=== PATIENT | male | born 1930 | race Caucasian/White ===

== ENCOUNTER 2019-01-28 10:08 | Inpatient (IN) ==
[2019-01-28] MEDS ORDERED: ULTRAM PO ONE (10:27)
--- NOTE | 2019-01-28 10:28 | PROVIDER DOCUMENTATION ---
HPI-Musculoskeletal Pain/Inj - GENERAL Chief Complaint: Male Stated Complaint: MALE Time Seen by Provider: 01/28/19 10:15 Source: patient - HX OF PRESENT ILLNESS-MUSKULOSKELTAL Nature of Presenting Problem: Patient is an 88 yowm who complains of left lower back pain since last night. The pain is exacerbated by movement. He states that he has felt the urge to urinate but has urinated on himself a few times since the onset of pain due to not being able to make it to the restroom in time. He denies fever, back injury, n/v/d, hematuria/dysuria, or any other complaints. He is non-toxic in appearanc e. Review of Systems - Adult - REVIEW OF SYSTEMS - ADULT Constitutional: reports: no symptoms reported. denies: chills, fever Eyes: reports: no symptoms reported Ears, Nose, Mouth & Throat: reports: no symptoms reported Cardiovascular: reports: no symptoms reported Respiratory: reports: no symptoms reported Gastrointestinal: reports: no symptoms reported Genitourinary: reports: no symptoms reported. denies: flank pain Musculoskeletal: reports: see HPI Integumentary: reports: no symptoms reported Neurological: reports: no symptoms reported Psychiatric: reports: no symptoms reported Endocrine: reports: no symptoms reported Hematologic/Lymphatic: reports: no symptoms reported Allergic/Immunologic: reports: no symptoms reported All Other Systems: Reviewed and Negative Past History - Adult - PAST MEDICAL HISTORY-ADULT Review of Records: reports: Old Records Reviewed, Nursing Assessment Review, Medications Reviewed, Social history reviewed & non-contributory. Major Childhood Illnesses: reports: denies history Cardiovascular: reports: HTN, hyperlipidemia Respiratory: reports: denies history Gastrointestinal: reports: denies history Genitourinary: reports: denies history Musculoskeletal: reports: denies history Neurological: reports: denies history Psychiatric: reports: denies history Endocrine/Immune: reports: Diabetes Diabetes Type: Type 2 Diabetes controlled by:: PO Meds Other Conditions: reports: denies history - PRIOR SURGERIES/PROCEDURES Surgical/Procedure History: reports: reviewed, not pertinent - FAMILY HISTORY Family History: reviewed, not pertinent - SOCIAL HISTORY Smoking: non-smoker Physical Exam-Injury Related - Physical Exam-Injury Related Initial Vital Signs Reviewed: Yes General Appearance: alert, no apparent distress. negative: lethargic, slow to respond Eyes: PERRL/EOMI, pink conjunctivae Head, Ears, Nose, Mouth & Throat: normocephalic/atraumatic, moist mucous membranes Neck: non-tender, full range of motion, supple, normal inspection Respiratory: chest non-tender, lungs clear, normal breath sounds, no pleuratic chest pain, no respiratory distress, no accessory muscle use Cardiovascular: normal peripheral pulses, regular rate, rhythm, no edema, no gallop, no murmur Abdominal Exam: normal bowel sounds, non tender, soft, no pulsatile mass. negative: distended, guarding, rigid, rebound, tenderness, hernia, mass Back Exam: normal inspection, no CVA tenderness, no vertebral tenderness, other (paraspinous muscles non-tender) Extremity: normal range of motion, non-tender, normal gait, normal inspection Integumentary: normal color, warm/dry. negative: cyanosis, diaphoresis, jaundice, mottled, pallor Neurologic: grossly normal, no motor/sensory deficits Psych/Mental Status: normal mood/affect, normal thought content, normal thought process, oriented x 3 - Glascow Coma Score Best Eye Response ([place]): (4) open spontaneously Best Verbal Response ([place]): (5) oriented Best Motor Response ([place]): (6) obeys commands Progress - PLAN OF CARE/RESULTS Progress/Plan/Lab Results: Vital Signs - 8 hr 01/28/19 10:10 Temperature 97.4 F L Pulse Rate 109 H Respiratory Rate 18 Blood Pressure 168/96 O2 Sat by Pulse Oximetry 97 Laboratory Results - last 24 hr 01/28/19 01/28/19 01/28/19 11:20 11:20 11:20 WBC 12.72 H RBC 4.54 L Hgb 13.0 L Hct 35.9 L MCV 79.1 L MCH 28.6 MCHC 36.2 RDW Std Deviation 16.0 H Plt Count 142 MPV 11.4 H Immature Gran % (Auto) 0.2 Neut % (Auto) 77.6 H Lymph % (Auto) 12.4 L [place] % (Auto) 8.9 Eos % (Auto) 0.7 Baso % (Auto) 0.2 Immature Gran # (Auto) 0.03 Neut # (Auto) 9.87 H Lymph # (Auto) 1.58 [place] # (Auto) 1.13 H Eos # (Auto) 0.09 Baso # (Auto) 0.02 PT 13.7 INR 1.04 PTT (Actin FS) 29.9 Sodium Potassium Chloride Carbon Dioxide Anion Gap BUN Creatinine Estimated GFR/1.73 m2 BUN/Creatinine Ratio Glucose Calculated Osmolality Calcium Total Bilirubin AST ALT Alkaline Phosphatase Troponin T < 0.010 Total Protein Albumin Globulin Albumin/Globulin Ratio Urine Source Urine Color Urine Turbidity Urine pH Ur Specific [place] Urine Protein Ur Glucose (Stick) Ur Ketones (Stick) Urine Blood Urine Nitrite Urine Bilirubin Urobilinogen Dipstick Urine Leukocytes Urine WBC (Auto) Urine RBC (Auto) U Epithel Cells (Auto) Urine Bacteria (Auto) Urine Crystals Small Round Cells Urine Casts Urine Yeast-like Cells 01/28/19 01/28/19 11:24 11:34 WBC RBC Hgb Hct MCV MCH MCHC RDW Std Deviation Plt Count MPV Immature Gran % (Auto) Neut % (Auto) Lymph % (Auto) [place] % (Auto) Eos % (Auto) Baso % (Auto) Immature Gran # (Auto) Neut # (Auto) Lymph # (Auto) [place] # (Auto) Eos # (Auto) Baso # (Auto) PT INR PTT (Actin FS) Sodium 137 Potassium 3.8 Chloride 98 Carbon Dioxide 23 L Anion Gap 16 BUN 22 Creatinine 0.7 Estimated GFR/1.73 m2 > 60 BUN/Creatinine Ratio 31 Glucose 245 H Calculated Osmolality 285 Calcium 9.3 Total Bilirubin 4.82 H AST 264 H ALT 645 H Alkaline Phosphatase 567 H Troponin T Total Protein 6.5 Albumin 4.2 Globulin 2.3 Albumin/Globulin Ratio 1.8 Urine Source CLEAN CATCH Urine Color YELLOW Urine Turbidity CLEAR Urine pH 6.0 Ur Specific [place] 1.020 Urine Protein 50 A Ur Glucose (Stick) >1000 A Ur Ketones (Stick) NEGATIVE Urine Blood TRACE A Urine Nitrite NEGATIVE Urine Bilirubin SMALL A Urobilinogen Dipstick 3 A Urine Leukocytes NEGATIVE Urine WBC (Auto) <10 Urine RBC (Auto) <10 U Epithel Cells (Auto) <10 Urine Bacteria (Auto) NEGATIVE Urine Crystals NONE SEEN Small Round Cells NONE SEEN Urine Casts NONE SEEN Urine Yeast-like Cells NONE SEEN Orders Category Date Time Status Consent for Surgery DIRECTED Care 01/28/19 12:47 Active Hold Anticoagulants DIRECTED Care 01/28/19 12:47 Active Notify Anesthesia & House Sup. Routine Care 01/28/19 12:47 Active Nursing- Obtain EKG ONCE Care 01/28/19 10:26 Active Saline Loc NOW Care 01/28/19 10:27 Active NPO Diet 01/29/19 00:[address] RENAL STONE SEARCH [CT] Stat Exams 01/28/19 10:26 Completed ERCP-BILIARY AND PANCREATIC [RAD] Routine Exams 01/29/19 12:30 Ordered CBC WITH DIFF [HEME] Stat Lab 01/28/19 11:20 Completed COMPREHENSIVE METABOLIC PANEL [CHEM] Stat Lab 01/28/19 11:24 Completed PROTIME WITH INR [COAG] Stat Lab 01/28/19 11:20 Completed PTT [COAG] Stat Lab 01/28/19 11:20 Completed TROPONIN T Stat Lab 01/28/19 11:20 Completed UA NIMS W/REFLEX CULT [URINALYSIS] Stat Lab 01/28/19 11:34 Completed URINE MANUAL MICROSCOPIC [URINALYSIS] Stat Lab 01/28/19 11:34 Completed Tramadol [Ultram] Med 01/28/19 10:27 Discontinued 50 mg PO NOW ONE EKG [EKG] Stat Ther 01/28/19 10:26 Ordered Result Diagrams: 01/28/19 11:20 01/28/19 11:24 - CONSULTS/PCP/HOSPITALIST Notification #1 *Consult/PCP/Hospitalist*: Dr. Hunter Time Discussed: 12:42 Reason/Comments: choledocholithiasis Consult Disposition: Admit ( states to admit to [facility] and he will have his BUSINESS PROCESS MODELER ev aluate to see if pt can have ERCP tomorrow. Admitting HPS paged at this time. Pt in agreement with admission plan.) #2 Consult: DURGA Pereira BUSINESS PROCESS MODELER Time Discussed: 12:54 Reason/Comments: admission- choledocholithiasis Consult Disposition: Admit Departure - Departure Date of Disposition Decision: 01/28/19 Time of Disposition Decision: 12:15 DIAGNOSIS: Choledocholithiasis, Elevated liver enzymes Back pain Qualifiers: Back pain location: low back pain Chronicity: acute Back pain laterality: left Sciatica presence: without sciatica Qualified Code(s): M54.5 - Low back pain Disposition: ADMITTED INPATIENT 09 Certified Medical Emergency: Emergent Condition: Stable Referrals and Follow-Ups: Young Augustine DO [Primary Care Provider] - - Critical Care Note This patient required my direct & personal management of CC.: No Attestation - Physician/ CHERRIE Attestation Patient care was provided by Advanced Practice Provider:: Yes Advanced Practice Provider:: Orin Merrill Advanced Practice Provider documentation review:: The Mid-level provider documentation, treatment plan and medical decision making was reviewed by the physician who agrees with all treatment and medical decision making by the MLP. The physician spent face to face time with patient:: No Advanced Practice Provider documentation review:: Supervising physician onsite and consulted in the evaluation and care of this patient. The physician did not have a face to face encounter with the patient.
--- NOTE | 2019-01-28 10:57 | Diag Imaging Result Doc PS360 ---
EXAM: CT RENAL STONE SEARCH 01/28/2019 HISTORY: left mid-lower back pain TECHNIQUE: This exam was performed using automated exposure control, adjustment of mA or kV according to patient size, and/or use of iterative reconstruction technique. COMMENT: There are some fibrotic changes present in the lung bases. No previous studies are available for comparison. There is calcification in the right coronary artery. There is a hiatal hernia with fluid in the distal esophagus. There is no evidence of nephrolithiasis or hydronephrosis. The spleen and adrenal glands are not enlarged. There has been cholecystectomy. The distal common bile duct appears to contain a calcified stone measuring less than 5 mm in diameter. The pancreas is grossly normal in appearance considering the lack of intravenous contrast. There is a fair amount of stool in the colon. This is particularly true in the right colon. There has been previous appendectomy. There is no evidence of small bowel obstruction. The aorta is not distended and there is no evidence of significant adenopathy. There is no evidence of free air or free fluid. The prostate gland is slightly enlarged measuring 6 cm transversely. There are bilateral hydroceles particularly on the left side. There is calcium pyrophosphate deposition in the symphysis pubis. There are bone islands in the right iliac bone and femoral head. There are degenerative disc changes at L5 S1. IMPRESSION: 1. Hiatal hernia with apparent reflux. 2. Choledocholithiasis. 3. Constipation. 4. Bilateral hydroceles. Electronically signed by Feliz Lorenz 01/28/2019 10:54 AM
[2019-01-28 11:29] LABS: BASO% 0.2 % (0.0-0.8); EOS# 0.09 X1000 (0.0-0.7); EOS% 0.7 % (0.0-10.0); HEMATOCRIT 35.9 % (42.0-52.0); IMM GRAN% 0.2 % (0.0-0.5); LYMPH# 1.58 X1000 (1.2-3.4); LYMPH% 12.4 % (20.5-51.1); MCH 28.6 PG (27-31); MCHC 36.2 g/dL (33-37); MCV 79.1 FL (81-99); MONO# 1.13 X1000 (0.11-0.59); MONO% 8.9 % (1.7-9.3); MPV 11.4 FL (7.4-10.4); NEUT# 9.87 X1000 (1.4-6.5); NEUT% 77.6 % (42.2-75.2); PLT 142 X1000 (130-400); RBC 4.54 XMIL (4.7-6.1); WBC 12.72 X1000 (4.8-10.8)
[2019-01-28 11:30] LABS: BASO# 0.02 X1000 (0.0-0.2); IMM GRAN# 0.03 X1000 (0.0-0.04)
[2019-01-28 11:36] LABS: INR 1.04; PROTIME 13.7 Seconds (11.0-16.0)
[2019-01-28 11:37] LABS: PTT 29.9 Seconds (22.3-41.8)
[2019-01-28 11:44] LABS: URINE SOURCE CLEAN CATCH
[2019-01-28 11:46] LABS: BILIRUBIN URINE SMALL (NEGATIVE); BLOOD URINE TRACE (NEGATIVE); COLOR YELLOW; GLUCOSE URINE >1000 mg/dL (NEGATIVE); KETONE URINE NEGATIVE (NEGATIVE); LEUKOCYTES URINE NEGATIVE (NEGATIVE); NITRITE URINE NEGATIVE (NEGATIVE); PROTEIN URINE 50 mg/dL (NEGATIVE); TURBIDITY URINE CLEAR (CLEAR); UROBILINOGEN URINE 3 mg/dL (NORMAL)
[2019-01-28 11:55] LABS: UR EPITHELIAL CELLS <10 /HPF (<10); URINE BACTERIA NEGATIVE /HPF; URINE CASTS NONE SEEN; URINE CRYSTALS NONE SEEN; URINE RBC <10 /HPF (<10); URINE SMALL ROUND CELLS NONE SEEN; URINE WBC <10 /HPF (<10); URINE YEAST NONE SEEN
--- NOTE | 2019-01-28 12:11 | ED EKG INTERP ---
This chart was entered by Prachi Flores Scribe, acting as scribe for Emil Cota MD. EKG Interpretation - EKG Time of EKG reading by physician:: 11:33 EKG Read and Signed by:: Emil Cota EKG Interpretation (*Must complete 3 of following elements*): Normal (Borderline) Rate: 82 Rhythm: NSR [place]: normal QRS: other (possible L atrial enlargement) NH Interval: normal ST Wave: normal Attestation - Physician/ CHERRIE Attestation Patient care was provided by Advanced Practice Provider:: Yes Advanced Practice Provider:: Orin Merrill Advanced Practice Provider documentation review:: The Mid-level provider documentation, treatment plan and medical decision making was reviewed by the physician who agrees with all treatment and medical decision making by the MLP. The physician spent face to face time with patient:: No Advanced Practice Provider documentation review:: Supervising physician onsite and consulted in the evaluation and care of this patient. The physician did not have a face to face encounter with the patient. This chart was documented by the indicated scribe, (Prachi Flores Scribe) and accurately reflects the services I performed and decisions made by me, Emil Cota MD, as attested by the provider's signature.
[2019-01-28 12:19] LABS: AGAP 16; ALB/GLOB RATIO 1.8; ALBUMIN 4.2 g/dL (3.5-5.0); ALKALINE PHOSPHATASE 567 U/L (32-122); BUN 22 mg/dL (8-22); CALCIUM 9.3 mg/dL (8.8-10.2); CHLORIDE 98 mmol/L (98-107); COSMO 285; CREATININE 0.7 mg/dL (0.7-1.2); ESTIMATED GFR > 60; GLUCOSE 245 mg/dL (70-104); GOT 264 U/L (10-34); GPT 645 U/L (10-44); POTASSIUM 3.8 mmol/L (3.5-5.1); SODIUM 137 mmol/L (136-145); TCO2 23 mmol/L (25-35); TOTAL BILIRUBIN 4.82 mg/dL (0.20-1.00); TOTAL PROTEIN 6.5 g/dL (6.3-8.3)
[2019-01-28] MEDS ORDERED: APRESOLINE IV PRN (14:11)
[2019-01-28] MEDS ORDERED: DEMEROL IV PRN (14:11)
[2019-01-28] MEDS ORDERED: ZOFRAN IV PRN (14:11)
--- NOTE | 2019-01-28 14:22 | HISTORY AND PHYSICAL ---
PRIMARY CARE PROVIDER: Dr. Vinny Augustine. RADIAL SAW OPERATOR: Dr. Clayton in [place]. CHIEF COMPLAINT: Low back pain. HISTORY OF PRESENT ILLNESS: Mr. Dubose is an 88-year-old male who is hard of hearing, carries a past medical history of diabetes mellitus, hypertension, hyperlipidemia, reports that back in November, he had a cholecystectomy at [facility]. He returns to the ED today complaining of left lower back pain that started last night. The pain was exacerbated by movement, and also reported some urinary incontinence. Workup in the ED with a renal CT showed choledocholithiasis. Lab work shows transaminitis. Dr. Blackwell has been consulted, and he has been set up for ERCP in the a.m. Will admit him to the surgical telemetry floor. Continue with pain medicines, antiemetics, full liquids, n.p.o. after midnight. PAST MEDICAL HISTORY: 1. Diabetes mellitus. 2. Hypertension. 3. Hyperlipidemia. PAST SURGICAL HISTORY: 1. Cholecystectomy. 2. Appendectomy. 3. Sinus surgery. FAMILY HISTORY: Both parents with coronary artery disease. Both in their late 90s. SOCIAL HISTORY: for 61 years. 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 He has 3 children. Grandchildren, about to have 3 great grandchildren. No alcohol, tobacco, or illicit drug use. ALLERGIES: 1. Aspirin, severe swelling. 2. Meningococcal vaccine, severe swelling. 3. Penicillin, unknown. 4. Plavix, unknown. HOME MEDICATIONS: 1. Lipitor 40 mg p.o. at bedtime. 2. CoQ10 one capsule p.o. daily. 3. Cozaar 25 mg p.o. daily. 4. Glimepiride 1 mg p.o. b.i.d. 5. Glucophage XR 500 mg p.o. b.i.d. PHYSICAL EXAMINATION: VITAL SIGNS: Temperature is 97.4 degrees, heart rate 80, respirations 16, blood pressure was 165/102, O2 is 96% on room air. GENERAL: Mr. Dubose is a [id number], 88-year-old, male, who is sitting up in the bed in no acute distress. HEENT: Atraumatic, normocephalic. PERRL. NECK: Supple. Trachea midline. CARDIOVASCULAR: S1, S2 appreciated. No murmurs, gallops, rubs noted. RESPIRATORY: Lungs are clear bilaterally. GASTROINTESTINAL: Soft, nontender, nondistended. Positive bowel sounds x4 quadrants. LOWER EXTREMITIES: Generalized edema. SKIN: Warm, dry, and intact. NEUROLOGIC: No focal deficits noted. DIAGNOSTIC DATA: Renal CT: Hiatal hernia with apparent reflux, choledocholithiasis, constipation, bilateral hydrocele. LABORATORY DATA: White count 12, hemoglobin and hematocrit 13 and 35, platelet count is 142,000. Sodium 137, potassium 3.8, BUN 22, creatinine 0.7, blood glucose is 245. Total bilirubin 4.82, AST 264, ALT 645, alkaline phosphatase 527. Troponin less than 0.010. ASSESSMENT AND PLAN: 1. Choledocholithiasis. The patient has been set up for endoscopic retrograde cholangiopancreatography in the morning with Dr. Blackwell. He will be on a clear liquid diet, nothing by mouth after midnight, pain regimen. 2. Transaminitis secondary to #1. Will continue at a trend with daily labs. 3. Diabetes mellitus with hyperglycemia. We will place him on pattern blood sugars with sliding scale. Will hold his oral medications for now. 4. Hyperlipidemia. Hold Lipitor. 5. Hypertension. Will hold his Cozaar for now, and do as needed Apresoline. 6. Further recommendations to follow physician evaluation, laboratory and diagnostic data. Dictated by LUCITA Garcia for Landry Zuleta MD Addendum: Patient seen and examined by myself. Agree with LUCITA note. It reflects my assessment and plan. Patient is being admitted to hospital for choledocholithiasis. Will be seen by and will require ERCP tomorrow. Will monitor LFT daily. cc: MD Young Rodgers, DO MTDD
--- NOTE | 2019-01-28 14:40 | GASTROENTEROLOGY CONSULTATION ---
DATE: 01/28/2019 REASON FOR CONSULTATION: Abnormal CT scan showing possible choledocholithiasis. HISTORY OF PRESENT ILLNESS: This is an 88-year-old male who reports onset of symptoms yesterday. He has reported pain, mainly in the left lower back area. He had had some issues urinating. No reported fever. No reported hematuria. The patient reports recent cholecystectomy in November in [place]. He does not remember the name of the surgeon. He has also recently seen his regrind mill operator, Dr. Clayton. He states he had recently wore a heart monitor for 1 month. The patient states he is currently not taking blood thinners. During workup, the patient had a CT renal stone search that showed hiatal hernia, with apparent reflux, choledocholithiasis. The common bile duct appears to contain a calcified stone measuring less than 5 mm in diameter. Also findings of constipation and bilateral hydroceles. PAST MEDICAL HISTORY: Hypertension, hyperlipidemia, history of coronary artery disease, diabetes. PAST SURGICAL HISTORY: Recent cholecystectomy this year in [place]. ALLERGIES: Aspirin causing swelling, pneumonia vaccine causing swelling, penicillin (unknown reaction), Plavix (unknown reaction). HOME MEDICATIONS: Lipitor 1 tablet every night, glimepiride 1 tablet twice a day, Cozaar 25 mg daily, metformin 500 mg twice a day, CoQ10 one daily. SOCIAL HISTORY: He is . Denies tobacco use. Occasional wine use, but none in the last 6 months. He has 3 children. PHYSICAL EXAMINATION: Vital Signs: Temperature 97.4 degrees, pulse 80, respirations 16, blood pressure 165/102. General: The patient is awake and alert. He is currently in the emergency room in a holding room in no acute distress. HEENT: Normocephalic, atraumatic. Pupils equal, round, reactive to light. Sclerae nonicteric. Cardiovascular: Regular rate and rhythm. Respiratory: Lung sounds are clear bilaterally. Abdomen: Nontender. Positive bowel sounds. Soft. Extremities: No lower extremity edema noted. Neurological: Cranial nerves II through XII grossly intact. The patient is awake, alert, oriented to person, place, and time. IMAGING AND LABORATORY DATA: Hematology: WBC 12.72, hemoglobin 13.0, hematocrit 35.9, MCV 79.1, platelets 142,000. Coagulation: ProTime 13.7, INR 1.04, PTT 29.9. Chemistry: Sodium 137, potassium 3.8, chloride 98, CO2 of 23, BUN 22, creatinine 0.7, glucose 245. Total bilirubin 4.82, AST 264, ALT 645, alkaline phosphatase 567. CT scan showed evidence of common bile duct stone measuring less than 5 mm in diameter. ASSESSMENT AND PLAN: 1. Back pain. 2. History of recent cholecystectomy. 3. Elevated liver function tests, including bilirubin. 4. CT scan showing possible stone in the common bile duct. Continue current medications. Continue pain medicine as needed. Will allow full liquid diet today. Will place nothing by mouth after midnight for plans for endoscopic retrograde cholangiopancreatography, stone extraction, and possible stent placement if indicated. I have discussed the procedure, along with benefits and risks with the patient, and he wishes to proceed. I have given him a pamphlet on the endoscopic retrograde cholangiopancreatography procedure and what to expect. Further plans to be made according to findings. I have discussed this case with Dr. Hunter. Thank you for this consultation. Plan is for endoscopic retrograde cholangiopancreatography on Tuesday. Dictated by LUCITA Santos for Eric Hunter MD cc: LUCITA Yusuf MD [facility]
[2019-01-28] MEDS: LEVAQUIN 750 MG/D5W 750 MG/150 ML IVPB IV SCH (15:38)
[2019-01-28] MEDS: NS 1,000 ML IV SCH (15:38)
--- NOTE | 2019-01-28 16:15 | EKG Report ---
Test Performed on : 01/28/2019 11:33:12 AM Test Reason : mid back pain Blood Pressure : / mmHG Vent. Rate : 082 BPM Atrial Rate : 082 BPM P-R Int : 176 ms QRS Dur : 100 ms QT Int : 394 ms P-R-T Axes : 056 -06 035 degrees QTc Int : 460 ms Normal sinus rhythm. Possible Left atrial enlargement Borderline ECG When compared with ECG of 30-SEP-2018 18:26, premature ventricular complexes. are no longer present Unconfirmed Result
[2019-01-28] MEDS: HUMALOG SUBQ SCH ×2 (18:11→22:24)
[2019-01-29] MEDS: NS 1,000 ML IV SCH ×2 (03:16→15:41)
[2019-01-29] MEDS: HUMALOG SUBQ SCH ×4 (06:00→21:05)
[2019-01-29 07:23] LABS: BASO# 0.02 X1000 (0.0-0.2); BASO% 0.2 % (0.0-0.8); EOS# 0.32 X1000 (0.0-0.7); EOS% 3.3 % (0.0-10.0); HEMATOCRIT 34.4 % (42.0-52.0); HEMOGLOBIN 12.3 g/dL (14.0-18.0); IMM GRAN# 0.04 X1000 (0.0-0.04); IMM GRAN% 0.4 % (0.0-0.5); LYMPH# 1.66 X1000 (1.2-3.4); LYMPH% 17.3 % (20.5-51.1); MCH 28.4 PG (27-31); MCHC 35.8 g/dL (33-37); MCV 79.4 FL (81-99); MONO# 1.21 X1000 (0.11-0.59); MONO% 12.6 % (1.7-9.3); MPV 11.9 FL (7.4-10.4); NEUT# 6.36 X1000 (1.4-6.5); NEUT% 66.2 % (42.2-75.2); PLT 144 X1000 (130-400); RBC 4.33 XMIL (4.7-6.1); RDW 15.6 % (11.5-14.5); WBC 9.61 X1000 (4.8-10.8)
[2019-01-29 07:34] LABS: AGAP 12; ALB/GLOB RATIO 1.3; ALBUMIN 3.5 g/dL (3.5-5.0); ALKALINE PHOSPHATASE 482 U/L (32-122); BUN 12 mg/dL (8-22); CALCIUM 8.9 mg/dL (8.8-10.2); CHLORIDE 101 mmol/L (98-107); COSMO 280; CREATININE 0.7 mg/dL (0.7-1.2); ESTIMATED GFR > 60; GLUCOSE 146 mg/dL (70-104); GOT 116 U/L (10-34); GPT 476 U/L (10-44); MAGNESIUM 1.1 mg/dL (1.5-2.7); POTASSIUM 3.9 mmol/L (3.5-5.1); SODIUM 139 mmol/L (136-145); TCO2 26 mmol/L (25-35); TOTAL BILIRUBIN 2.09 mg/dL (0.20-1.00); TOTAL PROTEIN 6.1 g/dL (6.3-8.3)
[2019-01-29] MEDS ORDERED: DIPRIVAN 1% 500 MG/50 ML BOTTLE ONE (13:13)
[2019-01-29] MEDS ORDERED: ZOFRAN ONE (13:20)
[2019-01-29] MEDS ORDERED: ROBINUL ONE (13:20)
[2019-01-29] MEDS ORDERED: NEO-SYNEPHRINE ONE (13:20)
[2019-01-29] MEDS ORDERED: SODIUM CHLORIDE 0.9% 20 ML ONE (13:20)
[2019-01-29] MEDS ORDERED: XYLOCAINE-MPF 2% ONE (13:32)
[2019-01-29] MEDS ORDERED: FENTANYL ONE (13:35)
--- NOTE | 2019-01-29 14:26 | GASTROENTEROLOGY PROGRESS NOTE ---
DATE: 01/29/2019 SUBJECTIVE: Patient was awake and alert. There are plans for ERCP today. Patient has been NPO. I have answered further questions he had, along with his , regarding the procedure, along with benefits and risks, and they wished to proceed. Further plans to be made according to findings. Today, his total bilirubin is 2.09, AST 116, ALT 476, alkaline phosphatase 482. Again, further plans to be made according to findings of the ERCP procedure. I have discussed this case with Dr. Hunter. Dictated by LUCITA Santos for Eric Hunter MD cc: LUCITA Yusuf MD [facility]
--- NOTE | 2019-01-29 14:52 | ENDOSCOPY OPERATIVE NOTE ---
[facility] ENDOSCOPY OPERATIVE NOTE , ERCP PROCEDURE REPORT EXAM DATE: 01/29/2019 PATIENT NAME: Reza Dubose MR #: [id number] BIRTHDATE: 1930 ATTENDING: Eric Hunter MD STATUS: inpatient FABRIC PATTERN GRADER: Kelli Otero, Emily Baldwin, and Minh Tellez INDICATIONS: The patient is a 88 yr old male here for an ERCP due to abnormal liver function test an d history of bile duct stone(s). PROCEDURE PERFORMED: ERCP with sphincterotomy/papillotomy ERCP with removal of calculus/calculi MEDICATIONS: Per Anesthesia CONSENT: The patient understands the risks and benefits of the procedure and understands that these r isks include, but are not limited to: sedation, allergic reaction, infection, perforation and/or bleeding. Alternative means of evaluation and treatment include, among others: physical exam, x-rays, and/or surgical intervention. The patient elects to proceed with this endoscopic procedure. HISTORY AND PHYSICAL: 01/29/2019 function. Hand hygiene and appropriate measures for infection prevention was taken. After the risks, benefits and alternatives of the procedure were thoroughly explained, Informed was verified, confirmed and timeout was successfully executed by the treatment team. With the patient in left semi-prone position, medications were admini stered intravenously.The [id number] ([id number]) was passed from the mouth into the esophagus and further advanc ed from the esophagus into the stomach. From stomach scope was directed to the second portion of the duodenum. M ajor papilla was aligned with the duodenoscope. The scope position was confirmed fluoroscopically. Rest of the finding s/therapeutics are given below. The scope was then completely withdrawn from the patient and the procedure completed. Th e pulse, BP, and O2 saturation were monitored and documented by the physician and the nursing staff throughout the ent valeriy procedure. The patient was cared for as planned according to standard protocol. The patient was then discharged to [facility] in stable condition and with appropriate post procedure care. ERCP: A operator electronic warfare film prior to endoscope insertion appeared normal. The Major Papilla was located in t he second portion of the duodenum. The major papilla appeared normal. Bile duct cannulation was attempted using the sphincterotome with guidewire. Cannulation of the bile duct was performed with ease. Deep cannulation was successf ully achieved. Contrast injection was performed. A cholangiogram releaved pancreas divisum. The cholangiogram re vealed two filling defects in the distal common bile duct. With guidewire within the bile duct, a large biliary sphinc terotomy was performed. A stone extraction was attempted using a stone extraction balloon. The bile duct was sw ept. ADVERSE EVENT: There were no complications. IMPRESSIONS: Common bile duct stone(s) RECOMMENDATIONS: 1. Start Full liquid diet for 1 Day(s) 2. Advance diet as tolerated 3. Repeat liver function test in 1 day(s) 4. Resume current medications 5. Disposition 6. Return to floor when standard parameters are met REPEAT EXAM: Eric Hunter MD eSigned: Eric Hunter MD 01/29/2019 2:51 PM cc: Young Augustine DO PATIENT NAME: Reza Dubose MR#: [id number]
--- NOTE | 2019-01-29 15:16 | Diag Imaging Result Doc PS360 ---
ERCP-BILIARY AND PANCREATIC - 01/29/2019 INDICATION: cbd stone, hx cholecystectomy, stone extraction, no stent placed TECHNIQUE: The exam was performed by the patient's endoscopist. Total fluoroscopy time was 2.7 minutes. Four images were obtained. COMPARISON: None FINDINGS: Contrast injection of the common bile duct demonstrated dilation of the duct. There is also a filling defect compatible with a stone. Stone extraction was performed. No stent was placed. IMPRESSION: Extraction of common bile duct stone. Electronically signed by Elvis Yang 01/29/2019 3:14 PM
[2019-01-29] MEDS: LEVAQUIN 750 MG/D5W 750 MG/150 ML IVPB IV SCH (15:41)
--- NOTE | 2019-01-29 16:33 | PROGRESS NOTE ---
DATE: 01/29/2019 SUBJECTIVE: Patient has no major complaints. OBJECTIVE: Blood pressure is 137/66, heart rate 85, respiratory 21, temperature 98 degrees, 97% on room air.Cardiovascular: Regular rate and rhythm. Pulmonary: Bilateral breath sounds clear to auscultation. GI: Soft, nontender, nondistended. Bowel sounds are positive. LABORATORY DATA: White count is 9, hemoglobin and hematocrit 12, 34, platelets 144,000, T bilirubin 2, AST and ALT 116 and 476. PROBLEM LIST: 1. Choledocholithiasis, patient is status post ERCP and he seems to be doing better, advancing diet. Will follow. 2. Elevated liver enzymes related to transient hepatitis from the biliary obstruction. Numbers already improved. 3. Type 2 diabetes. Continue his medications and follow. His sugars are okay. They have not been terrible so will keep an eye on them. DISPOSITION: If improved I anticipate he probably discharge the next 1 to 2 days. cc: Evgeny Tidwell MD
[2019-01-30] MEDS ORDERED: LOVENOX SUBQ SCH (06:00)
[2019-01-30] MEDS: HUMALOG SUBQ SCH ×2 (06:15→11:02)
[2019-01-30] MEDS: NS 1,000 ML IV SCH ×2 (06:57→13:18)
[2019-01-30] MEDS ORDERED: PRILOSEC PO SCH (07:00)
[2019-01-30 07:33] LABS: BASO# 0.03 X1000 (0.0-0.2); BASO% 0.3 % (0.0-0.8); EOS# 0.36 X1000 (0.0-0.7); EOS% 3.1 % (0.0-10.0); HEMATOCRIT 33.4 % (42.0-52.0); IMM GRAN# 0.07 X1000 (0.0-0.04); IMM GRAN% 0.6 % (0.0-0.5); LYMPH# 1.69 X1000 (1.2-3.4); LYMPH% 14.7 % (20.5-51.1); MCH 28.6 PG (27-31); MCHC 35.9 g/dL (33-37); MCV 79.7 FL (81-99); MONO# 1.18 X1000 (0.11-0.59); MONO% 10.2 % (1.7-9.3); MPV 12.4 FL (7.4-10.4); NEUT# 8.19 X1000 (1.4-6.5); NEUT% 71.1 % (42.2-75.2); PLT 144 X1000 (130-400); RBC 4.19 XMIL (4.7-6.1); RDW 15.9 % (11.5-14.5); WBC 11.52 X1000 (4.8-10.8)
[2019-01-30 08:04] LABS: AGAP 13; ALBUMIN 3.1 g/dL (3.5-5.0); ALKALINE PHOSPHATASE 406 U/L (32-122); BUN 11 mg/dL (8-22); CHLORIDE 100 mmol/L (98-107); COSMO 275; CREATININE 0.7 mg/dL (0.7-1.2); ESTIMATED GFR > 60; GLUCOSE 166 mg/dL (70-104); GOT 74 U/L (10-34); GPT 341 U/L (10-44); POTASSIUM 3.8 mmol/L (3.5-5.1); SODIUM 136 mmol/L (136-145); TCO2 23 mmol/L (25-35); TOTAL BILIRUBIN 1.84 mg/dL (0.20-1.00); TOTAL PROTEIN 6.1 g/dL (6.3-8.3)
[2019-01-30 09:35] LABS: HEMOGLOBIN A1C 6.8 % (4.8-6.0)
--- NOTE | 2019-01-30 11:37 | GASTROENTEROLOGY PROGRESS NOTE ---
DATE: 01/30/2019 SUBJECTIVE: Patient states he is feeling better. He currently denies abdominal pain. He had an ERCP with sphincterotomy done on 01/29/2019. Liver function tests have improved some today. OBJECTIVE: Vital Signs: Temperature 98.1 degrees, pulse 75, respirations 18, blood pressure 140/72. General: The patient is awake, alert, no acute distress. Abdomen: Soft, nontender. Positive bowel sounds. LABORATORY: Hematology WBC 11.52, hemoglobin 12.0, hematocrit 33.4, MCV 79.7. Chemistry sodium 136, potassium 3.8, chloride 100, CO2 of 23, BUN 11, creatinine 0.7, glucose 166, total bilirubin 1.84, AST 74, ALT 341, alkaline phosphatase 406. ASSESSMENT AND PLAN: 1. Elevated liver function tests, history of recent cholecystectomy. 2. Choledocholithiasis, status post endoscopic retrograde cholangiopancreatography and sphincterotomy. A stent was not placed. 3. Type 2 diabetes. Will change his diet to a diabetic diet. 4. His liver function tests have improved some. If he tolerates his diet at lunch, as far as GI is concerned he can be discharged. Recommend he follow up in our office in 2 to 3 weeks. Recommend he have liver function tests prior to his office visit. I have discussed this case with Dr. Hunter. Dictated by LUCITA Santos for Eric Hunter MD cc: LUCITA Yusuf MD
[2019-01-30] MEDS: LEVAQUIN 750 MG/D5W 750 MG/150 ML IVPB IV SCH (13:18)
[2019-01-30 15:21] VITALS: BP 119/65
== END 2019-01-30 16:34 | disposition home or self-care (01) | DRG 446 ==
LOC: ED 10:08 → 3N 13:29 → SUATTDRO 13:29
PROVIDERS: ATTEND Internal Medicine
PROC: EN.ERCP (2019-01-29 14:18)